=== PATIENT | female | born 1960 | race Two or more races ===

== ENCOUNTER 2020-03-19 22:38 | Inpatient (IN) | payer MEDICARE, OTHER ==
[~2020-03-19] VITALS: Ht 170.2 cm; Wt 38.1 kg
[2020-03-19] MEDS: IV NS 0.9% 1,000 ML BAG IV ONE (00:20)
[2020-03-19] MEDS: PIPERACILLIN /TAZOBACTAM 3.375 G in IV D5W 50 ML IV ONE (00:20)
[2020-03-19] MEDS ORDERED: VANCOMYCIN 1 GM in IV D5W 250 ML IV ONE (23:00)
--- NOTE | 2020-03-19 23:00 | NUR ---
BEAR C/O SOB FROM HOME. PT SEEN & EVAL'D BY DR. NAVARRETE. PLACED ON FISHER EEL SPEAR, ST. PLACED ON O2 2L, SAT 98%. WILL CONT TO MONITOR.
[2020-03-20] VITALS (119 sets, daily range): BP systolic 38–162; BP diastolic 22–113
--- NOTE | 2020-03-20 | NUR ---
DR NAVARRETE AT BED SIDE FOR CENTRAL LINE INSERTION
--- NOTE | 2020-03-20 00:15 | NUR ---
BLOOD SPECIMEN OBTAINED VIA R FEMORAL CENTRAL LINE AND SENT TO LAB
[2020-03-20] MEDS: IV NS 0.9% 1,000 ML BAG IV ONE (00:20)
[2020-03-20] MEDS: PIPERACILLIN /TAZOBACTAM 3.375 G in IV D5W 50 ML IV ONE (00:20)
--- NOTE | 2020-03-20 00:20 | NUR ---
RADIOLOGY AT BEDSIDE FOR CXR
[2020-03-20] MEDS ORDERED: PIPERACILLIN /TAZOBACTAM 3.375 G VIAL IV ONE (00:23)
[2020-03-20] MEDS ORDERED: VANCOMYCIN 1 GM VIAL ONE (00:23)
[2020-03-20 00:26] LABS: BASOPHILS % (AUTO) 0.3 % (0.0-2.0); EOSINOPHILS % (AUTO) 0.4 % (0.0-6.0); HEMATOCRIT 41 % (33-45); HEMOGLOBIN 12.1 g/dL (11.5-14.8); LYMPHOCYTES # (AUTO) 0.4 /CMM (0.8-4.8); MEAN CORPUSCULAR HGB CONC 30 g/dl (31.0-36.0); MEAN CORPUSCULAR VOLUME 116 fL (82-100); MONOCYTES # (AUTO) 0.1 /CMM (0.1-1.30); MONOCYTES % (AUTO) 2.1 % (2.0-12.0); NEUTROPHILS # (AUTO) 2.6 /CMM (1.8-8.9); NEUTROPHILS % (AUTO) 84.2 % (43.0-81.0); PLATELET COUNT (AUTO) 185 /CMM (150-450); RED BLOOD CELL COUNT(AUTO) 3.54 MIL/uL (4.0-5.2); WHITE BLOOD COUNT (AUTO) 3.1 K/uL (4.3-11.0)
[2020-03-20] MEDS ORDERED: IV NS 0.9% 1,000 ML IV PRN (00:30)
--- NOTE | 2020-03-20 00:40 | NUR ---
URINE COLLECTED AND SENT TO LAB
--- NOTE | 2020-03-20 00:43 | NUR ---
RT AT BEDSIDE FOR ABG
[2020-03-20 00:49] LABS: ABG BASE EXCESS -16.8 mmol/L; ABG OXYGEN SATURATION 90.7 % (92.0-98.5); ABG PCO2 47.3 mmHg (35.0-45.0); ABG PH 7.055 (7.350-7.450); ABG PO2 86.7 mmHg (75.0-100.0); AaDO2 115.1 mmHg; COHb 0.4 % (0.5-1.5); MetHb 0.3 % (0.0-1.5); O2Hb 90.1 % (94.0-97.0); SITE, ABG Right Brachial; VENT MODE, BG Nasal cannula
[2020-03-20 00:52] LABS: ALANINE AMINOTRANSFERASE 57 U/L (12-78); ALBUMIN 1.6 g/dL (3.4-5.0); ALKALINE PHOSPHATASE 60 U/L (46-116); ASPARTATE AMINOTRANSFERASE 0 U/L (15-37); BILIRUBIN,DIRECT 0.4 mg/dL (0.0-0.2); BILIRUBIN,TOTAL 0.6 mg/dL (0.2-1.0); CALCIUM, SERUM 9.6 mg/dL (8.5-10.1); CARBON DIOXIDE 17 mmol/L (21-32); CHLORIDE 103 mmol/L (98-107); CREATININE 3.4 mg/dL (0.6-1.3); SODIUM SERUM 140 mmol/L (136-145); TOTAL PROTEIN, SERUM 6.7 g/dL (6.4-8.2); UREA NITROGEN, BLOOD 68 mg/dL (7-18)
[2020-03-20 00:54] LABS: BILIRUBIN,URINE SMALL (NEGATIVE); BLOOD, URINE Negative Ery/uL (NEGATIVE); COLOR,URINE Yellow (YELLOW); LEUKOCYTE ESTERASE ,URINE Large (NEGATIVE); NITRITE, URINE Negative (NEGATIVE); PROTEIN,URINE >=300 mg/dl (NEGATIVE); UGLUCOSE Negative (NEGATIVE); UROBILINOGEN,URINE 0.2 EU/dL (0.2)
[2020-03-20] MEDS ORDERED: NOREPINEPHRINE 8 MG in IV NS 0.9% 242 ML IV STA (01:03)
[2020-03-20] MEDS ORDERED: NOREPINEPHRINE 4 MG/4 ML AMPUL IV ONE ×2 (01:04→06:31)
[2020-03-20 01:07] LABS: GLUCOSE 392 mg/dL (74-106); POTASSIUM 6.2 mmol/L (3.5-5.1)
[2020-03-20 01:24] LABS: BACTERIA,URINE None seen /HPF (None Seen); RBC,URINE 0-2 /HPF (0-2); SQUAMOUS EPITHELIAL CELL,UR Few /HPF (None Seen)
[2020-03-20] MEDS ORDERED: INSULIN REGULAR, HUMAN 100 UNIT/ML 10 ML VIAL ONE (01:25)
[2020-03-20] MEDS ORDERED: INSULIN REGULAR, HUMAN 100 UNIT in IV NS 0.9% 99 ML IV PRN ×4 (01:30→02:30)
[2020-03-20] MEDS ORDERED: IV NS 0.9% 1,000 ML IV ONE ×4 (01:30→15:00)
[2020-03-20] MEDS ORDERED: FENTANYL PF 100MCG/2ML AMPUL ONE (02:03)
[2020-03-20] MEDS ORDERED: POLY17PO4 PO (02:05)
[2020-03-20] MEDS ORDERED: NYST5ORA PO (02:05)
[2020-03-20] MEDS ORDERED: MULT-754 PO (02:05)
[2020-03-20] MEDS ORDERED: SENN-261 PO (02:05)
[2020-03-20] MEDS ORDERED: CALC-20 PO (02:05)
[2020-03-20] MEDS ORDERED: OXYC5CAP18 PO (02:05)
[2020-03-20] MEDS ORDERED: IPRA0.2S49 IH (02:05)
[2020-03-20] MEDS ORDERED: DEXA2TAB PO (02:05)
[2020-03-20] MEDS ORDERED: INSU100V7 SQ (02:05)
[2020-03-20] MEDS ORDERED: ATOV750O4 PO (02:05)
[2020-03-20] MEDS ORDERED: SODI10PO PO (02:05)
[2020-03-20] MEDS ORDERED: MELA5TAB21 PO (02:05)
[2020-03-20] MEDS ORDERED: BICT1TAB PO (02:05)
[2020-03-20] MEDS ORDERED: ASCO500T10 PO (02:05)
[2020-03-20] MEDS ORDERED: PANT40TA49 PO (02:05)
--- NOTE | 2020-03-20 02:06 | NUR ---
YAJAIRA GARCIA CAR CUSTOMIZER AT BED SIDE
--- NOTE | 2020-03-20 02:11 | NUR ---
PT MUMBLING WORDS AND ASKING FOR TYLENOL FOR PAIN. DR NAVARRETE MADE AWARE W/ AN ORDER FOR FENTANYL. NOTED AND VINH OUT.
[2020-03-20] MEDS ORDERED: MAGNESIUM HYDROXIDE 30 ML UDC PO PRN (02:30)
[2020-03-20] MEDS ORDERED: ONDANSETRON HCL/PF 4 MG/2 ML VIAL IVP PRN (02:30)
[2020-03-20] MEDS ORDERED: HYDROCODONE/APAP 5/325MG TABLET PO PRN (02:30)
[2020-03-20] MEDS ORDERED: MORPHINE SULFATE INJ 2 MG/ML DISP.SYRIN IV PRN (02:30)
[2020-03-20] MEDS ORDERED: MAG HYDROX/AL HYDROX/SIMETH 30 ML UDC PO PRN (02:30)
[2020-03-20] MEDS ORDERED: ACETAMINOPHEN 325 MG TABLET PO PRN (02:30)
[2020-03-20] MEDS ORDERED: FENTANYL PF 100MCG/2ML AMPUL IV PRN (02:30)
[2020-03-20] MEDS ORDERED: Z GUARD REMEDY 2 OZ OINT TP PRN (02:30)
[2020-03-20] MEDS ORDERED: TEMAZEPAM 15 MG CAPSULE PO PRN (02:30)
--- NOTE | 2020-03-20 02:53 | NUR ---
REPORT GIVEN TO GABBY @ ICU
--- NOTE | 2020-03-20 03:40 | NUR ---
PT WAS TRANSFERRED TO BED 250 UNDER ACLS
[2020-03-20] MEDS: IV NS 0.9% 1,000 ML IV PRN ×2 (04:26→14:49)
--- NOTE | 2020-03-20 04:30 | NUR ---
PATIENT SATURATING AT 76% ON NASAL CANNULA. PATIENT PLACED ON NRB AT 15L. SATURATING AT 100% NO SIGNS OF ANY RESPIRATORY DISTRESS.
[2020-03-20] MEDS: NOREPINEPHRINE 8 MG in IV NS 0.9% 242 ML IV PRN ×3 (04:53→09:24)
[2020-03-20 05:01] LABS: CALCIUM, SERUM 7.8 mg/dL (8.5-10.1); CREATININE 2.7 mg/dL (0.6-1.3); POTASSIUM 5.1 mmol/L (3.5-5.1)
[2020-03-20] MEDS ORDERED: PHENYLEPHRINE 50 MG in IV NS 0.9% 245 ML IV PRN (06:30)
--- NOTE | 2020-03-20 07:30 | NUR ---
RECEIVED PATIENT FROM ER NURSE SIMA. PATIENT IS LETHARGIC WITH MINIMAL SPEECH. PATIENT IS ALERT TO SELF. RECEIVED PATIENT ON 4L OF ON NS SATURATING THE MOST AT 86% BUT NO SIGNS OF ANY SOB. WOUNDS WERE CLEANED AND PICTURES TAKEN. PATIENT ARRIVED WITH LEVO INFUSING @ 0.3 MCG/KG/MIN AND AN INSULIN DRIP @ 4 UNIT/HR. RIGHT FEMORAL TRIPLE LUMEN PATENT. PATIENT IS UNABLE TO AMBULATE WITH BLE AND BUE FLACCID. PATIENT IS CRITICAL BP CONTINUE TO BE LOW WILL MONITOR AND TITRATE NEEDED. Addendum: 03/20/20 at 0736 by GABBY GARRIDO RN INCORRECT TIME CORRECT TIME 0400
--- NOTE | 2020-03-20 07:58 | NUR ---
WOUND CARE CONSULT: REVIEWED CHART, NURSING DOCUMENTATION AND PHOTOS WHICH INDICATE RT UPPER BACK UNSTAGEABLE ULCER, LEFT BUTTOCK/HIP FULL THICKNESS ULCER, SACRAL DEEP TISSUE INJURY WITH SURROUNDING SCARRING, ALL PRESENT ON ADMISSION. PT IS CACHECTIC. RECOMMEND SURGICAL CONSULT. DR ARNOL CHAO NOTIFIED OF CONSULT REQUEST RECOMMENDATIONS MADE FOR WOUND CARE AND SKIN PROTECTION. DISCUSSED WITH NURSING STAFF. PT IS ON ALONSO ISOFLEX LOW AIRLOSS BED. DIETARY CONSULT IN PLACE. IN AGREEMENT WITH PLAN OF CARE.
[2020-03-20] MEDS ORDERED: HYDROGEL DRESSING 90 GM TUBE TP PRN (08:00)
[2020-03-20] MEDS: ASPIRIN 81 MG TAB.CHEW PO SCH ×2 (08:10→08:40)
[2020-03-20] MEDS: FLUDROCORTISONE 0.1 MG TABLET PO SCH ×2 (08:10→08:41)
[2020-03-20] MEDS: HYDROCORTISONE SOD SUCCINATE 100 MG/2 ML VIAL IV SCH ×3 (08:16→20:04)
[2020-03-20] MEDS: BLOOD SUGAR DIAGNOSTIC 1 EACH STRIP IN SCH ×14 (08:16→22:41)
[2020-03-20] MEDS: HEPARIN SODIUM, PORCINE 5000 UNITS/1 ML VIAL SQ SCH ×2 (08:17→20:05)
[2020-03-20] MEDS: PIPERACILLIN /TAZOBACTAM 2.25 G in IV D5W 50 ML IV SCH ×2 (08:17→13:26)
[2020-03-20] MEDS ORDERED: ZINC1CAP2 PO (08:22)
[2020-03-20] MEDS ORDERED: ACET-2605 PO (08:22)
[2020-03-20] MEDS ORDERED: OXYC5TAB3 PO (08:22)
[2020-03-20] MEDS ORDERED: ENOX40DI SQ (08:22)
[2020-03-20] MEDS ORDERED: IPRA0.2S9 IH (08:22)
[2020-03-20] MEDS ORDERED: INSU100V39 SQ (08:22)
[2020-03-20] MEDS ORDERED: GABA-536 PO (08:22)
[2020-03-20] MEDS ORDERED: LIDO30AD10 TP (08:24)
[2020-03-20 08:52] LABS: ABG BASE EXCESS -12.9 mmol/L; ABG OXYGEN SATURATION 94.1 % (92.0-98.5); ABG PCO2 91.9 mmHg (35.0-45.0); ABG PO2 92.1 mmHg (75.0-100.0); COHb 0.7 % (0.5-1.5); MetHb 0.3 % (0.0-1.5); O2Hb 93.2 % (94.0-97.0); SITE, ABG Right Radial; VENT MODE, BG non rebreather
--- NOTE | 2020-03-20 08:55 | NUR ---
ABG done, Per. Dr. Joe patient needs to be intubated, called Kayden (son) [phone], no answer, mailbox full..
--- NOTE | 2020-03-20 09:30 | NUR ---
Dr. Joe speaking to son who consents to intubation
--- NOTE | 2020-03-20 10:00 | NUR ---
s/p intubation, CXR ordered, patient hypotensive and tachycardic, received orders for NS bolus and vasopressin Addendum: 03/20/20 at 3 by BEVERLY BORRERO RN @1020 - Dr. Joe aware of pH 6.9, "it will correct with ventilator" . no new orders Addendum: 03/20/20 at 2143 by BEVERLY BORRERO RN correction "it should"
[2020-03-20] MEDS ORDERED: VASOPRESSIN INJ 20 UNIT in IV NS 0.9% 39 ML IV PRN (10:30)
--- NOTE | 2020-03-20 10:38 | NUR ---
Card Table Attendant consult requested by Triston Donovan DNP as patient came from home with wounds. Patient is currently intubated. Patient is uninterviewable at this time. SW to follow up with Son Kayden [phone].
[2020-03-20] MEDS: DAKINS QUARTER STRENGTH (0.125%) 480 ML BOTTLE TOP SCH (10:56)
[2020-03-20] MEDS: HYDROGEL DRESSING 90 GM TUBE TP SCH (10:56)
[2020-03-20 11:14] LABS: CALCIUM, SERUM 7.5 mg/dL (8.5-10.1); CREATININE 2.7 mg/dL (0.6-1.3); MAGNESIUM 2.4 mg/dL (1.8-2.4); POTASSIUM 6.1 mmol/L (3.5-5.1)
[2020-03-20 11:21] LABS: PHOSPHORUS 8.7 mg/dL (2.5-4.9)
[2020-03-20 12:57] LABS: ABG BASE EXCESS -13.1 mmol/L; ABG OXYGEN SATURATION 93.9 % (92.0-98.5); ABG PCO2 56.1 mmHg (35.0-45.0); ABG PH 7.092 (7.350-7.450); ABG PO2 79.1 mmHg (75.0-100.0); AaDO2 577.8 mmHg; COHb 0.3 % (0.5-1.5); MetHb 0.3 % (0.0-1.5); O2Hb 93.3 % (94.0-97.0); SITE, ABG Right Femoral
--- NOTE | 2020-03-20 13:00 | NUR ---
post intubation ABG completed and sent to Dr. Joe, received vent change orders
[2020-03-20] MEDS ORDERED: ROCURONIUM BROMIDE 50 MG/5 ML IV ONE (14:05)
[2020-03-20] MEDS ORDERED: ETOMIDATE 2 MG/ML VIAL IV ONE (14:05)
--- NOTE | 2020-03-20 14:10 | NUR ---
updated Kayden on patient condition who confirmed full code status and wishes to speak to a doctor, baltazar relayed to Dr. beltre
--- NOTE | 2020-03-20 14:24 | NUR ---
called Dr. Doran to update patient's condition: rhythm changes ST HR 108, accelerated junctional w/ BBB -> notched P wave. Then ST w/ notched P wave HR 124-126. BP at these times low, maxed on three pressors - patient is s/p 1L NS bolus from earlier this am, orders to check CVP and if less than 12 bolus 1L NS
--- NOTE | 2020-03-20 14:40 | NUR ---
called Dr. Wilkinson to discuss patient condition, aware of insulin drip and potassium, orders for 1amp ca gluconate & albuterol (R/O COVID) and kayexelate . Per Dr. Joe K+ should be better after most recent lab draw @1400 , no need for albuterol or kayexelate ..
[2020-03-20] MEDS: PHENYLEPHRINE 100 MG in IV NS 0.9% 240 ML IV PRN (14:58)
[2020-03-20 15:03] LABS: ABG BASE EXCESS -16.6 mmol/L; ABG OXYGEN SATURATION 96.3 % (92.0-98.5); ABG PCO2 45.2 mmHg (35.0-45.0); ABG PH 7.075 (7.350-7.450); ABG PO2 94.5 mmHg (75.0-100.0); AaDO2 573.3 mmHg; COHb 0.8 % (0.5-1.5); MetHb 0.3 % (0.0-1.5); O2Hb 95.2 % (94.0-97.0); SITE, ABG Right Radial
[2020-03-20 15:06] LABS: CREATININE 2.8 mg/dL (0.6-1.3)
[2020-03-20 15:15] LABS: POTASSIUM 6.2 mmol/L (3.5-5.1)
--- NOTE | 2020-03-20 15:28 | NUR ---
Dr. Joe aware of potassium 6.2, no new orders
[2020-03-20] MEDS ORDERED: SODIUM BICARBONATE SYR 50 MEQ/50 ML DISP.SYRIN IV ONE (15:30)
[2020-03-20] MEDS ORDERED: Calcium Gluconate 1GM/10ML 4.65 MEQ in IV D5W 50 ML IV ONE (15:30)
--- NOTE | 2020-03-20 15:30 | NUR ---
orders for bicarb x2 + bicarb drip Addendum: 03/20/20 at 2148 by BEVERLY BORRERO RN bicarb iv push x2 amps
[2020-03-20] MEDS ORDERED: Sodium Bicarbonate 150 MEQ in IV 1/2NS 1000 ML 1,000 ML IV PRN (16:00)
[2020-03-20] MEDS ORDERED: SULFAMETHOXAZOLE/TRIMETHOPRIM 15 ML in IV D5W 250 ML IV SCH (17:00)
[2020-03-20 17:58] LABS: ABG BASE EXCESS -9.1 mmol/L; ABG OXYGEN SATURATION 98.7 % (92.0-98.5); ABG PCO2 32.9 mmHg (35.0-45.0); ABG PH 7.308 (7.350-7.450); ABG PO2 133.9 mmHg (75.0-100.0); AaDO2 546.2 mmHg; COHb 0.3 % (0.5-1.5); MetHb 0.3 % (0.0-1.5); O2Hb 98.1 % (94.0-97.0); SITE, ABG Right Radial; VENT MODE, BG ac32 550 100% +5
[2020-03-20 18:19] LABS: CALCIUM, SERUM 6.6 mg/dL (8.5-10.1); CREATININE 2.7 mg/dL (0.6-1.3)
[2020-03-20] MEDS ORDERED: PROPOFOL 100 ML IV PRN (18:30)
[2020-03-20] MEDS: MEROPENEM 500 MG in IV NS 0.9% 50 ML IV SCH (19:49)
[2020-03-20] MEDS: CLINDAMYCIN HCL 150 MG CAPSULE PO SCH (19:49)
[2020-03-20] MEDS: PRIMAQUINE 15 MG TABLET GT SCH (19:49)
--- NOTE | 2020-03-20 20:00 | NUR ---
RN NOTES 1900 PM - RECEIVED PATIENT HEMODYNAMICALLY UNSTABLE, ORALLY INTUBATED WITH ETT 7.0/23 CM AT LIPLINE WITH VENT SETTING AC 32 TV 550 FIO2 100% NO PEEP. SATURATION 100%. PATIENT IS RESPONSIVE TO PAIN. MILD TO MODERATE AGITATION PRESENT STARTED SEDATION ORDERED PROTOCOL. ST ON TELE MONITOR. WITH GOOD PERIPHERAL PULSES. IV SITE ON RIGHT FEMORAL WITH MARIAM @ 3MCG/KG/MIN, LEVO @ 0.6 MCG/KG/MIN, BICARB @ 125 ML/HR, S/P INSULIN DRIP OFF@ 7PM BY AM NURSE. AND S/P VASOPRESSIN DRIP. CONTINUE WITH ACCUCHECK Q2H. . PATIENT NGT REMAINED INTACT AND PATENT WITH MINIMAL AMT OF RESIDUAL. NGT REMAINED CLAMPED. CORE TEMP 102.9 DEG ARENHEIT COOLING BLANKET PLACED KEPT PATIENT COMFORTABLE AND COOLING MEASURES PROVIDED. KEPT PT CLEAN AND DRY. WILL CONTINUE TO MONITOR CLOSELY. - JE DARLING CALLED AND UPDATED REGARDING THE PATIENT STATUS.
[2020-03-20] MEDS: NOREPINEPHRINE 32 MG in IV NS 0.9% 218 ML IV PRN (21:48)
--- NOTE | 2020-03-20 21:51 | NUR ---
ICU shift summary s/p intubation, BP unstable soon after (pressors +1L NS bolus given) & around 1300 (pressors+another 1L NS bolus given after reading CVP = 2 per dry charge process attendant Bassem). See vitasigns for pressor titration. Multiple vent changes made after ABGs per Dr. Joe orders. R NGT in place verified via auscultation & aspiration. Wound care completed. R femoral PICC - see IV spreadsheet. Febrile throughout shift Tmax 102.7F oral. R upper back wound culture sent. insulin drip DC'd , BG @1626= 62 (OJ x1 box) recheck - BG @1748 65 (OJ x2 box) * per Triston DNP cont bicarb drip, disregard D51/2NS IVF. Patient responds to pain + cough reflex. Restraints as patient is moving arms.
[2020-03-20 22:39] LABS: CALCIUM, SERUM 6.7 mg/dL (8.5-10.1); CREATININE 2.9 mg/dL (0.6-1.3)
[2020-03-20 22:45] LABS: POTASSIUM 6.8 mmol/L (3.5-5.1)
[2020-03-20] MEDS ORDERED: VANCOMYCIN 500 MG in IV D5W 100ml IV SCH (23:00)
[2020-03-20] MEDS ORDERED: VASOPRESSIN INJ 20 UNIT/ML VIAL ONE (23:54)
[2020-03-21] VITALS (27 sets, daily range): BP systolic 31–130; BP diastolic 24–75
[2020-03-21] MEDS: VASOPRESSIN INJ 40 UNIT in IV NS 0.9% 38 ML IV PRN ×2 (00:22→10:04)
[2020-03-21] MEDS ORDERED: SODIUM POLYSTYRENE SULFONATE 15 G/60 ML BOTTLE NG ONE ×2 (00:30→07:00)
[2020-03-21] MEDS ORDERED: INSULIN REGULAR, HUMAN 100 UNIT/ML 3 ML VIAL IV ONE ×2 (00:30→07:00)
[2020-03-21] MEDS ORDERED: DEXTROSE 50%-WATER 50 ML DISP.SYRIN IVP ONE ×2 (00:30→07:00)
--- NOTE | 2020-03-21 00:30 | NUR ---
RN NOTES CALLED OPHTHALMOLOGY TECHNICIAN SPOKE TO DR. GARCIA REGARDING PATIENT POTASSIUM 6.8 AND BS AT THIS TIME 72 MG/DL AND IF THE PATIENT CAN HAVE A-LINE DUE TO BP IS UNABLE TO READ DESPITE OF ALL PRESSORS ARE MAX AND PATIENT IS RESPONSIVE TO PAIN. WITH NEW ORDER OF D50%, REGULAR INSULIN , AND INSULIN DRIP, IVF AND KAYEXALATE (SEE ORDERS).
[2020-03-21] MEDS: BLOOD SUGAR DIAGNOSTIC 1 EACH STRIP IN SCH ×12 (01:17→12:08)
[2020-03-21] MEDS: CLINDAMYCIN HCL 150 MG CAPSULE PO SCH ×2 (01:18→09:00)
[2020-03-21] MEDS ORDERED: INSULIN REGULAR, HUMAN 100 UNIT in IV NS 0.9% 99 ML IV PRN ×2 (01:30)
[2020-03-21] MEDS ORDERED: IV D5/0.45 NACL 1,000 ML IV PRN (01:30)
[2020-03-21] MEDS ORDERED: SODIUM BICARBONATE SYR 50 MEQ/50 ML DISP.SYRIN IV ONE ×3 (01:30→09:00)
--- NOTE | 2020-03-21 02:00 | NUR ---
RN NOTES COOLING BLANKET REMOVED PATIENT TEMPERATURE AT THIS TIME 98.6 DEGREE FHARENHEIGHT, WILL CLOSELY MONITOR.
--- NOTE | 2020-03-21 02:00 | NUR ---
RN NOTES PATIENT'S BP IS UNABLE TO READ WELL, MANUALY BP W/ DOPPLER CHECKED WITH SBP 130 MMHG, WILL CONTINUE TO MONITOR.
[2020-03-21] MEDS: PHENYLEPHRINE 100 MG in IV NS 0.9% 240 ML IV PRN ×2 (02:39→11:01)
[2020-03-21] MEDS: NOREPINEPHRINE 32 MG in IV NS 0.9% 218 ML IV PRN (04:01)
[2020-03-21 04:50] LABS: BASOPHILS % (AUTO) 0.1 % (0.0-2.0); EOSINOPHILS % (AUTO) 1.5 % (0.0-6.0); HEMATOCRIT 33 % (33-45); HEMOGLOBIN 9.9 g/dL (11.5-14.8); LYMPHOCYTES # (AUTO) 0.1 /CMM (0.8-4.8); LYMPHOCYTES % (AUTO) 3.6 % (20.0-44.0); MEAN CORPUSCULAR HGB CONC 30 g/dl (31.0-36.0); MEAN CORPUSCULAR VOLUME 114 fL (82-100); MONOCYTES % (AUTO) 1.3 % (2.0-12.0); NEUTROPHILS # (AUTO) 3.7 /CMM (1.8-8.9); NEUTROPHILS % (AUTO) 93.5 % (43.0-81.0); PLATELET COUNT (AUTO) 57 /CMM (150-450); RED BLOOD CELL COUNT(AUTO) 2.92 MIL/uL (4.0-5.2); WHITE BLOOD COUNT (AUTO) 3.9 K/uL (4.3-11.0)
[2020-03-21 05:12] LABS: CHOLESTEROL 73 mg/dL (<200); CREATINE KINASE, TOTAL 1303 U/L (26-192); HDL CHOLESTEROL 15 mg/dL (40-60); LDL 14 mg/dL (0-99); TRIGLYCERIDES 221 mg/dL (30-150)
[2020-03-21 05:17] LABS: ALKALINE PHOSPHATASE 130 U/L (46-116); BILIRUBIN,TOTAL 1.3 mg/dL (0.2-1.0); CALCIUM, SERUM 6.7 mg/dL (8.5-10.1); CHLORIDE 109 mmol/L (98-107); CREATININE 3.3 mg/dL (0.6-1.3); GLUCOSE 110 mg/dL (74-106); MAGNESIUM 2.5 mg/dL (1.8-2.4); SODIUM SERUM 148 mmol/L (136-145); TOTAL PROTEIN, SERUM 4.4 g/dL (6.4-8.2); UREA NITROGEN, BLOOD 74 mg/dL (7-18)
[2020-03-21 05:19] LABS: BAND % (MANUAL) 11 % (0.0-5.0); LYMPHOCYTES % (MANUAL) 8 % (16-48); NEUTROPHILS % (MANUAL) 77 (42-76); REACTIVE LYMPHOCYTES 4 % (0-0)
[2020-03-21 05:45] LABS: ALANINE AMINOTRANSFERASE 6665 U/L (12-78)
[2020-03-21 05:53] LABS: ALBUMIN 0.9 g/dL (3.4-5.0); CARBON DIOXIDE 8 mmol/L (21-32); PHOSPHORUS 11.3 mg/dL (2.5-4.9); POTASSIUM 7.1 mmol/L (3.5-5.1)
[2020-03-21 05:59] LABS: ASPARTATE AMINOTRANSFERASE 7777 U/L (15-37)
[2020-03-21] MEDS: MEROPENEM 500 MG in IV NS 0.9% 50 ML IV SCH (06:20)
[2020-03-21] MEDS: HYDROCORTISONE SOD SUCCINATE 100 MG/2 ML VIAL IV SCH (06:23)
--- NOTE | 2020-03-21 06:30 | NUR ---
RN NOTES INFORMED DR. GARCIA REGARDING PATIENT CRITICAL LAB VALUES FOLLOW ; LACTIC ACID 20.5 POTASSIUM 7.1 CO2 8.2 ALBUMIN 0.9 PHOS 11.3 DNP WITH NEW ORDER OF D50%, BICARB IVP, KAYEXALATE, AND INSULIN IVP ( SEE ORDER). NOTED AND CARRIED OUT ORDERS.
[2020-03-21] MEDS ORDERED: IV NS 0.9% 250 ML IV PRN (07:00)
--- NOTE | 2020-03-21 07:10 | NUR ---
RUNNER ON NOTES RECEIVED PATIENT UNRESPONSIVE WITHDRAWALS FROM PAIN , GAG AND COUGHING REFLEX + , HEMODYNAMICALLY UNSTABLE , , ON MECHANICAL VENT SETTINGS ORDERED WITH SPO2 OF 92-50% , ST 115 ON BEDSIDE MONITOR , R NARE NGT NOTED WITH MODERATE BLOODY SECRETIONS ATTACHED TO LOW INTERMITTENT SUCTION , FC DRAINING VIA GRAVITY NO OUTPUT NOTED , RIGHT FEMORAL TLC WITH LEVO @ 0.1MCG/KG/MIN , NEOSYNEPRINE @ 3MCG/KG/MIN , VASOPRESSIN @ 0.04U/HR , D5 1/2 NS @ 125ML/HR , INSULIN DRIP @ 0.5U/HR ,INFUSING WELL , DIPRIVAN ON HOLD PT IS NON RESPONSIVE , ALL NEEDS ATTENDED , WILL CONTINUE TO MONITOR .
--- NOTE | 2020-03-21 07:31 | NUR ---
HAMMER REPAIRER NOTES PT NOTED TO HAVE BLOODY SECRETION FROM NGT MODERATER IN [place] , ATTACHED TO LOW INTERMITTENT SUCTION , PAGED JENNI THOMAS , SPOKE WITH LIU AWATING FOR CALL BACK
--- NOTE | 2020-03-21 07:32 | NUR ---
RN NOTES PATIENT REMAINED INTUBATED, WTH ETT AND VENT SETTING WITH AC 32 FIO2 100% TV 550 . PATIENT IS HEMODYNAMICALLY UNSTABLE, UNRESPONSIVE + GAG AND COUGH REFLEX PRESENT. CONTINUE WITH 3 PRESSORS MANUAL BP RENDERED DUE TO UNABLE T O READ ON THE MONITOR. WITH ORDER TO PLACED CHANEL TODAY, INSULIN DRIP HELD AT THIS TIME FOR BS 74 PER PROTOCOL TO STOP INFUSION, CVP ONGOING LABELED AND CALIBRATED. IVF D5 1/2 NS CONTINUE. ONE ON ONE NURSING CARE ORDER. KEPT PT CLEAN AND DRY. ENDORSED CONTINUITY OF CARE TO AM NURSE.
[2020-03-21] MEDS ORDERED: ALBUTEROL FS 2.5 MG/3 ML VIAL.NEB NEB ONE (08:30)
[2020-03-21] MEDS ORDERED: VANCOMYCIN 500 MG in IV D5W 100ml IV SCH (08:30)
--- NOTE | 2020-03-21 08:30 | NUR ---
DEAL ARCHITECT NOTES SEEN AND EVALUATED BY DR COLINDRES DISCUSSED LABS CHEST XRAY , CURRENT VENT SETTINGS , CVP OF 13-14 MMHG, PT CURRENTLY ON 3 MAXED PRESSORS OF LEVO , MARIAM AND VASO , UNRESPONSIVE WITH GAG AND COUGH REFLEX , NO SEDATION AT THIS TIME , NOTED WITH MODERATE BLOODY OUTPUT VIA NGT , PER MD PLACED PT ION LOW ICS , NO URINE OUTPUT NOTED , MD AWARE .
[2020-03-21 08:44] LABS: ABG BASE EXCESS -26.6 mmol/L; ABG OXYGEN SATURATION 99.6 % (92.0-98.5); ABG PCO2 22.5 mmHg (35.0-45.0); ABG PH 6.913 (7.350-7.450); AaDO2 428.5 mmHg; COHb 0.5 % (0.5-1.5); MetHb 0.3 % (0.0-1.5); O2Hb 98.8 % (94.0-97.0); SITE, ABG Right Femoral; VENT MODE, BG ac 32 550 0 100%
--- NOTE | 2020-03-21 08:50 | NUR ---
TREATMENT COORDINATOR NOTES ABG RESULTS RELAYED TO DR PEPPER AND DR MICHELLE MD AWARE , FIO2 TITARTED TO 60% AND DR GINA MARTINEZ ORDER 1 AMP OF NA BICARB X1 IVP , ORDER CARRIED OUT
[2020-03-21] MEDS ORDERED: ASPIRIN 81 MG TAB.CHEW PO SCH (09:00)
[2020-03-21] MEDS ORDERED: IV LR 500 ML IV ONE (09:00)
[2020-03-21] MEDS ORDERED: Sodium Bicarbonate 100 MEQ in IV D5/0.45 NACL 1,000 ML IV PRN (09:00)
[2020-03-21] MEDS ORDERED: HEPARIN SODIUM, PORCINE 5000 UNITS/1 ML VIAL SQ SCH (09:00)
[2020-03-21] MEDS: FLUDROCORTISONE 0.1 MG TABLET PO SCH (09:00)
[2020-03-21] MEDS: PRIMAQUINE 15 MG TABLET GT SCH (09:00)
[2020-03-21] MEDS: DAKINS QUARTER STRENGTH (0.125%) 480 ML BOTTLE TOP SCH (09:04)
[2020-03-21] MEDS: HYDROGEL DRESSING 90 GM TUBE TP SCH (09:04)
[2020-03-21 09:15] LABS: HEMATOCRIT 29 % (33-45); HEMOGLOBIN 8.2 g/dL (11.5-14.8); MEAN CORPUSCULAR HGB CONC 29 g/dl (31.0-36.0); MEAN CORPUSCULAR VOLUME 119 fL (82-100); RED BLOOD CELL COUNT(AUTO) 2.41 MIL/uL (4.0-5.2); WHITE BLOOD COUNT (AUTO) 4.3 K/uL (4.3-11.0)
[2020-03-21 09:19] LABS: PLATELET COUNT (AUTO) 43 /CMM (150-450)
--- NOTE | 2020-03-21 09:30 | NUR ---
PHYSICAL DESIGN ENGINEER NOTES SPOKE WITH DR COLINDRES , REPORTED CRITICAL LAB OF PLATELETS OF 43 AND LACTIC OF 22.9 , MD AWARE , PER MD FANG CBC Q4H , ORDER CARRIED OUT
--- NOTE | 2020-03-21 10:49 | NUR ---
BRICKMASON APPRENTICE NOTES SPOKE WITH PHONG , PT SON , UPDATED REGARDING PT STATUS , DISCUSSED PLAN OF CARE , DR MARTINEZ SPOKE WITH SON PHONG AND DISCUSSED PLAN OF CARE , PER SON HE WANTS TO DO EVERYTHING IF PT HEART STOPS , MD AWARE .
[2020-03-21 10:53] LABS: MAGNESIUM 2.5 mg/dL (1.8-2.4)
--- NOTE | 2020-03-21 11:16 | NUR ---
CONCERT PIANIST NOTES NOTIFIED DR MARTINEZ REGARDING MAG 2.5 AND PHOS OF 13.0 ,PER MD PT NEEDS HD
[2020-03-21] MEDS ORDERED: EPINEPHRINE (1:10,000) SYRINGE 1 MG/10 ML DISP.SYRIN IVP ONE (12:20)
--- NOTE | 2020-03-21 12:25 | NUR ---
RT CODE BLUE CALLED, CPR INITIATED.
--- NOTE | 2020-03-21 12:25 | NUR ---
MACHINIST BENCH NOTES PATIENT WAS CODED AT 1218 BECAUSE OF NO PULSE, NO BP, RR IS 32 VIA MECHANICAL VENTILATOR, AND SETTING WELL. SPO2-40 % AND LOW. PATIENT WAS UNRESPONSIVE, SE COD BLUR SHEET.
--- NOTE | 2020-03-21 13:00 | NUR ---
PLATE SHOP HELPER NOTES PATIENT PRONOUNCED VIA DR DELGADO. PATIENT HAS NO AUDIBLE HEART TONES, NO BP, NO RR. NOTIFIED HOSPITALIST Dr. COLINDRES, COURT MANAGER, ADMITTING, AND FAMILY SON NAME PHONG. POST MORTEM CARE DONE, LABELED BELONGING, AND ID TAGS APPLIED. CALLED [facility]. TRANSFEREE PATIENT TO THE [facility] WITH SECURITY PERSONNEL.
[2020-03-22 10:07] LABS: *BASOS 1 % (Not Estab.); *COMMENTS Note: (.); *EOS 0 % (Not Estab.); *HCT 28.2 % (34.0-46.6); *HGB 9.9 g/dL (11.1-15.9); *LYMPHOCYTES 5 % (Not Estab.); *LYMPHS, ABSOLUTE 0.2 x10E3/uL (0.7-3.1); *MCH 34.1 pg (26.6-33.0); *MCHC 35.1 g/dL (31.5-35.7); *MCV 97 fL (79-97); *MONOCYTES 1 % (Not Estab.); *NEUTROPHILS 84 % (Not Estab.); *NEUTROPHILS, ABSOLUTE 3.6 x10E3/uL (1.4-7.0); *NRBC 11 % (0 - 0); *PLT 61 x10E3/uL (150-450); *RDW 14.7 % (11.7-15.4)
[2020-03-22 12:07] LABS: *% CD 4 POS. LYMPH 14.6 % (30.8-58.5); *% CD 8 POS. LYMPH 71.1 % (12.0-35.5); *ABSOLUTE CD 4 HELPER 29 /uL (359-1519); *ABSOLUTE CD 8 SUPPRESSOR 142 /uL (109-897); *CD4/CD8 RATIO 0.21 (0.92-3.72)
[2020-03-22 14:33] LABS: *SPE A/G RATIO 0.4 (0.7-1.7); *SPE ALBUMIN 1.1 g/dL (2.9-4.4); *SPE ALPHA-1-GLOBULIN 0.4 g/dL (0.0-0.4); *SPE BETA GLOBULIN 0.4 g/dL (0.7-1.3); *SPE GLOBULIN, TOTAL 2.6 g/dL (2.2-3.9); *SPE M-SPIKE 0.1 g/dL (Not Observed); *SPEGAMMA GLOBULIN 0.7 g/dL (0.4-1.8)
[2020-03-25 11:33] LABS: *HIV-1 RNA BY PCR 1130 copies/mL (.); *HIV-1 log10 RNA 3.053 (.)
== END 2020-03-21 12:21 | disposition expired | DRG 974 ==
LOC: ER 22:40 → ICU 03-20 01:26
PROVIDERS: ADMIT Nurse Practitioner Acute Care; ATTEND Family Medicine
PROC: 5A1945Z Respiratory Ventilation, 24-96 Consecutive Hours (ICD-10-PCS; principal; 2020-03-20)
PROC: 0BH18EZ Insertion of Endotracheal Airway into Trachea, Via Natural or Artificial Opening Endoscopic (ICD-10-PCS; 2020-03-20)
PROC: 5A2204Z Restoration of Cardiac Rhythm, Single (ICD-10-PCS; 2020-03-21)
DX: A41.9 Sepsis, unspecified organism (principal); E11.10 Type 2 diabetes mellitus with ketoacidosis without coma; B20 Human immunodeficiency virus [HIV] disease; R65.21 Severe sepsis with septic shock; N17.0 Acute kidney failure with tubular necrosis; E43 Unspecified severe protein-calorie malnutrition; J96.01 Acute respiratory failure with hypoxia; J96.02 Acute respiratory failure with hypercapnia; B59 Pneumocystosis; K72.00 Acute and subacute hepatic failure without coma; I21.A1 Myocardial infarction type 2; N39.0 Urinary tract infection, site not specified; D68.59 Other primary thrombophilia; E87.2 Acidosis; C34.90 Malignant neoplasm of unspecified part of unspecified bronchus or lung; I47.1 Supraventricular tachycardia; E27.40 Unspecified adrenocortical insufficiency; G82.20 Paraplegia, unspecified; K92.2 Gastrointestinal hemorrhage, unspecified; Z79.4 Long term (current) use of insulin; Z79.51 Long term (current) use of inhaled steroids; Z79.899 Other long term (current) drug therapy; B96.89 Other specified bacterial agents as the cause of diseases classified elsewhere; G83.81 Brown-Sequard syndrome; E87.5 Hyperkalemia; Z74.09 Other reduced mobility; C67.9 Malignant neoplasm of bladder, unspecified; Z92.3 Personal history of irradiation; Z80.52 Family history of malignant neoplasm of bladder; Y95 Nosocomial condition; E83.39 Other disorders of phosphorus metabolism; E83.51 Hypocalcemia; D64.9 Anemia, unspecified; I25.10 Atherosclerotic heart disease of native coronary artery without angina pectoris; Y63.3 Inadvertent exposure of patient to radiation during medical care; Y92.9 Unspecified place or not applicable
CPT/HCPCS: 31720; 36415; 36600; 71045-TC; 76770-TC; 80048-TC; 80053-TC; 80061-TC; 80076-TC; 81000-TC; 82010-TC; 82550-TC; 82553; 82803-TC; 82962-TC; 83605-TC; 83615-TC; 83735-TC; 83970; 84100-TC; 84155; 84165; 84443-TC; 84484-TC; 85025-TC; 85027-TC; 85730-TC; 86360; 87040-TC; 87070-TC; 87081-TC; 87086-TC; 87186-TC; 87536; 87899; 92950-TC; 93307-TC; 94002-TC; 94003-TC; 94760-TC; A6248; A6253; A6403; C1751; G0378; J0171; J0610; J1644; J1720; J1815; J2185; J2370; J2543; J3010; J3370; J3490; J7030; J7042; J7050; J7060; J7070; J7120; U0003